=== PATIENT | female | born 1980 | race Caucasian/White ===

== ENCOUNTER 2019-07-11 21:08 | Emergency (ER) | payer SELFPAY ==
[~2019-07-11] VITALS: Ht 170.2 cm; Wt 137.9 kg
[2019-07-11 21:11] VITALS: Ht 170.2 cm; Wt 137.9 kg
[2019-07-12 00:35] VITALS: BP 118/80
== END 2019-07-12 00:35 | disposition home or self-care (01) ==
LOC: ED 21:08
DX: S16.1XXA Strain of muscle, fascia and tendon at neck level, initial encounter (principal); V49.49XA Driver injured in collision with other motor vehicles in traffic accident, initial encounter; Y93.I9 Activity, other involving external motion; Y92.413 State road as the place of occurrence of the external cause; Y99.8 Other external cause status